=== PATIENT | male | born 1955 | race Caucasian/White ===

== ENCOUNTER → 2024-06-20 | Outpatient (CLI) | payer OTHER, SELFPAY ==
[2024-06-20 08:35] LABS: Basophils % (Auto) 1 % (0-2.5); Eosinophils # (Auto) 0.2 Thou/mm3 (0.0-0.5); Eosinophils % (Auto) 2 % (0-10); Hematocrit 38.1 % (41.0-53.0); Hemoglobin 12.3 g/dL (13.5-16.0); Immature Granulocytes % (Auto) 0 % (0-0); Immature Granulocytes Auto 0.02 Thou/mm3 (0.00-0.00); Lymphocytes # (Auto) 1.8 Thou/mm3 (1.0-4.8); Lymphocytes % (Auto) 26 % (10-50); Mean Corpuscular HGB Conc 32.3 g/dl (31.0-37.0); Mean Corpuscular Hemoglobin 30.9 pg (25.0-35.0); Mean Corpuscular Volume 96 fL (80-100); Monocytes # (Auto) 0.6 Thou/mm3 (0.0-0.8); Monocytes % (Auto) 9 % (0-12); Neutrophils # (Auto) 4.4 Thou/mm3 (1.8-7.7); Neutrophils % (Auto) 62 % (37-80); Nucleated Red Blood Cell % 0 /100 WBC (0); Platelet Count 194 Thou/mm3 (140-440); RDW Standard Deviation 49.8 fL (35.1-43.9); Red Blood Count 3.98 Miln/mm3 (4.50-5.90)
== END | disposition home or self-care (01) ==
PROVIDERS: PCP Family Medicine; Referring Provider Specialist; Visit Provider Specialist
DX: I74.9 Embolism and thrombosis of unspecified artery (principal)
CPT/HCPCS: 36415; 85025

== ENCOUNTER → 2024-07-19 | Outpatient (CLI) | payer OTHER, SELFPAY ==
[2024-07-19 08:33] LABS: Basophils # (Auto) 0.1 Thou/mm3 (0.0-0.2); Basophils % (Auto) 1 % (0-2.5); Eosinophils # (Auto) 0.1 Thou/mm3 (0.0-0.5); Eosinophils % (Auto) 2 % (0-10); Hematocrit 38.3 % (41.0-53.0); Hemoglobin 12.6 g/dL (13.5-16.0); Immature Granulocytes % (Auto) 0 % (0-0); Immature Granulocytes Auto 0.02 Thou/mm3 (0.00-0.00); Lymphocytes # (Auto) 1.6 Thou/mm3 (1.0-4.8); Lymphocytes % (Auto) 27 % (10-50); Mean Corpuscular HGB Conc 32.9 g/dl (31.0-37.0); Mean Corpuscular Hemoglobin 31.5 pg (25.0-35.0); Mean Corpuscular Volume 96 fL (80-100); Monocytes # (Auto) 0.6 Thou/mm3 (0.0-0.8); Monocytes % (Auto) 9 % (0-12); Neutrophils # (Auto) 3.6 Thou/mm3 (1.8-7.7); Neutrophils % (Auto) 60 % (37-80); Nucleated Red Blood Cell % 0 /100 WBC (0); Platelet Count 207 Thou/mm3 (140-440); RDW Standard Deviation 49.6 fL (35.1-43.9)
== END | disposition home or self-care (01) ==
PROVIDERS: PCP Family Medicine; Referring Provider Specialist; Visit Provider Specialist
DX: I74.9 Embolism and thrombosis of unspecified artery (principal); Z51.11 Encounter for antineoplastic chemotherapy
CPT/HCPCS: 36415; 85025

== ENCOUNTER → 2024-09-11 | Outpatient (CLI) | payer OTHER, SELFPAY ==
--- NOTE | 2024-09-11 | XR_ITS ---
Examination: Ultrasound urinary bladder Technique: Grayscale sonographic images urinary bladder Exam date and time: September 11, 2024 12:18 PM Indications: Pelvic pain beginning several months ago Findings: No bladder mass or bladder calculi Bladder prevoid volume 164 cc Urinary bladder wall 6 mm Prostate volume 13 cc no prostate nodules Impression: Mild thickening of the urinary bladder wall, consider cystitis
== END | disposition home or self-care (01) ==
LOC: CDIM 12:05
PROVIDERS: PCP Family Medicine; Referring Provider Physician Assistant; Visit Provider Physician Assistant
DX: N32.89 Other specified disorders of bladder (principal)
CPT/HCPCS: 76857

== ENCOUNTER → 2024-09-11 | Outpatient (CLI) | payer OTHER, SELFPAY ==
[2024-09-11 11:29] LABS: Basophils # (Auto) 0.1 Thou/mm3 (0.0-0.2); Basophils % (Auto) 1 % (0-2.5); Eosinophils # (Auto) 0.1 Thou/mm3 (0.0-0.5); Eosinophils % (Auto) 2 % (0-10); Hematocrit 40.1 % (41.0-53.0); Immature Granulocytes % (Auto) 0 % (0-0); Immature Granulocytes Auto 0.02 Thou/mm3 (0.00-0.00); Lymphocytes # (Auto) 1.9 Thou/mm3 (1.0-4.8); Lymphocytes % (Auto) 26 % (10-50); Mean Corpuscular HGB Conc 32.4 g/dl (31.0-37.0); Mean Corpuscular Hemoglobin 30.6 pg (25.0-35.0); Mean Corpuscular Volume 94 fL (80-100); Monocytes # (Auto) 0.6 Thou/mm3 (0.0-0.8); Monocytes % (Auto) 8 % (0-12); Neutrophils # (Auto) 4.7 Thou/mm3 (1.8-7.7); Neutrophils % (Auto) 64 % (37-80); Nucleated Red Blood Cell % 0 /100 WBC (0); Platelet Count 189 Thou/mm3 (140-440); RDW Standard Deviation 48.3 fL (35.1-43.9); Red Blood Count 4.25 Miln/mm3 (4.50-5.90); White Blood Count 7.4 Thou/mm3 (3.8-10.6)
[2024-09-11 13:24] LABS: Glucose Estimated Average 123 mg/dL (80-131); Hemoglobin A1C 5.9 % Hgb (4.8-6.0)
[2024-09-11 13:32] LABS: Prostate Specific Antigen 0.43 ng/mL (0-4.00)
[2024-09-11 13:47] LABS: Alanine Aminotransferase 23 U/L (10-49); Albumin, Serum 4.2 gm/dL (3.4-4.8); Albumin/Globulin Ratio 2.1 (1.2-2.2); Anion Gap 9 (7-16); Aspartate Amino Transferase 12 U/L (0-34); BUN/Creatinine Ratio 18 Ratio (12-20); Bilirubin,Total 0.6 mg/dL (0.3-1.2); Blood Urea Nitrogen 23 mg/dL (9-23); Calcium 9.2 mg/dL (8.3-10.6); Calcium (Corrected) 9.2 mg/dL (8.5-10.1); Carbon Dioxide 28.2 mMol/L (20.0-31.0); Cardiac Risk Estimate 3.2 RATIO (4.0-6.7); Chloride 105 mMol/L (98-107); Cholesterol 120 mg/dL (132-200); Creatinine (Component) 1.3 mg/dL (0.6-1.3); Glucose 91 mg/dL (74-106); HDL Cholesterol 38 mg/dL (40-60); LDL Cholesterol,Calculated 61 mg/dL (0-130); Osmolality,Calculated 286 (275-295); Sodium 142 mMol/L (136-145); Total Protein 6.2 gm/dL (5.7-8.2); Triglycerides 104 mg/dL (30-150); eGFR 59 See Note
[2024-09-11 14:32] LABS: Alkaline Phosphatase 59 U/L (46-116); Thyroid Stimulating Hormone 1.33 uIU/mL (0.55-4.78)
== END | disposition home or self-care (01) ==
LOC: COPL 10:41
PROVIDERS: PCP Physician Assistant; Referring Provider Physician Assistant; Visit Provider Physician Assistant
DX: N41.1 Chronic prostatitis (principal)
CPT/HCPCS: 36415; 80053; 80061; 81001; 83036; 84153; 84443; 85025

== ENCOUNTER → 2024-10-18 | Outpatient (CLI) | payer OTHER, SELFPAY ==
[2024-10-18 08:37] LABS: Basophils % (Auto) 1 % (0-2.5); Eosinophils # (Auto) 0.3 Thou/mm3 (0.0-0.5); Eosinophils % (Auto) 4 % (0-10); Hematocrit 37.7 % (41.0-53.0); Hemoglobin 12.5 g/dL (13.5-16.0); Immature Granulocytes % (Auto) 0 % (0-0); Immature Granulocytes Auto 0.02 Thou/mm3 (0.00-0.00); Lymphocytes # (Auto) 1.7 Thou/mm3 (1.0-4.8); Lymphocytes % (Auto) 19 % (10-50); Mean Corpuscular HGB Conc 33.2 g/dl (31.0-37.0); Mean Corpuscular Hemoglobin 30.8 pg (25.0-35.0); Mean Corpuscular Volume 93 fL (80-100); Monocytes # (Auto) 1.2 Thou/mm3 (0.0-0.8); Monocytes % (Auto) 14 % (0-12); Neutrophils # (Auto) 5.5 Thou/mm3 (1.8-7.7); Neutrophils % (Auto) 63 % (37-80); Nucleated Red Blood Cell % 0 /100 WBC (0); Platelet Count 201 Thou/mm3 (140-440); RDW Standard Deviation 48.1 fL (35.1-43.9); Red Blood Count 4.06 Miln/mm3 (4.50-5.90); White Blood Count 8.8 Thou/mm3 (3.8-10.6)
== END | disposition home or self-care (01) ==
LOC: COPL 06:50
PROVIDERS: PCP Family Medicine; Referring Provider Specialist; Visit Provider Specialist
DX: Z51.11 Encounter for antineoplastic chemotherapy (principal); I74.9 Embolism and thrombosis of unspecified artery
CPT/HCPCS: 36415; 85025

== ENCOUNTER → 2025-01-17 | Outpatient (BNVA) | payer OTHER, SELFPAY | END | disposition home or self-care (01) | PROVIDERS: PCP Family Medicine; Referring Provider Family Medicine; Visit Provider Urology | DX: N40.0 Benign prostatic hyperplasia without lower urinary tract symptoms (principal); E11.9 Type 2 diabetes mellitus without complications; I10 Essential (primary) hypertension; E66.01 Morbid (severe) obesity due to excess calories; Z68.39 Body mass index [BMI] 39.0-39.9, adult; F41.9 Anxiety disorder, unspecified; E78.00 Pure hypercholesterolemia, unspecified; Z86.73 Personal history of transient ischemic attack (TIA), and cerebral infarction without residual deficits | CPT/HCPCS: 81003; 99212; G0463 ==

== ENCOUNTER → 2025-01-17 | Outpatient (CLI) | payer OTHER, SELFPAY ==
[2025-01-17 08:38] LABS: Collection Type, Urine Clean Catch
[2025-01-17 09:15] LABS: Basophils # (Auto) 0.0 Thou/mm3 (0.0-0.2); Basophils % (Auto) 1 % (0-2.5); Eosinophils # (Auto) 0.1 Thou/mm3 (0.0-0.5); Eosinophils % (Auto) 1 % (0-10); Hematocrit 40.0 % (41.0-53.0); Hemoglobin 13.1 g/dL (13.5-16.0); Immature Granulocytes Auto 0.02 Thou/mm3 (0.00-0.00); Lymphocytes # (Auto) 1.8 Thou/mm3 (1.0-4.8); Lymphocytes % (Auto) 24 % (10-50); Mean Corpuscular HGB Conc 32.8 g/dl (31.0-37.0); Mean Corpuscular Hemoglobin 30.9 pg (25.0-35.0); Mean Corpuscular Volume 94 fL (80-100); Monocytes # (Auto) 0.6 Thou/mm3 (0.0-0.8); Monocytes % (Auto) 9 % (0-12); Neutrophils # (Auto) 4.8 Thou/mm3 (1.8-7.7); Neutrophils % (Auto) 66 % (37-80); Nucleated Red Blood Cell # 0.00 Thou/mm3 (0.00-0.00); Nucleated Red Blood Cell % 0 /100 WBC (0); Platelet Count 201 Thou/mm3 (140-440); RDW Standard Deviation 50.1 fL (35.1-43.9); Red Blood Count 4.24 Miln/mm3 (4.50-5.90); White Blood Count 7.3 Thou/mm3 (3.8-10.6)
[2025-01-17 09:17] LABS: Glucose Estimated Average 117 mg/dL (80-131); Hemoglobin A1C 5.7 % Hgb (4.8-6.0)
[2025-01-17 09:23] LABS: Prostate Specific Antigen 0.45 ng/mL (0-4.00)
[2025-01-17 09:26] LABS: Alanine Aminotransferase 21 U/L (10-49); Albumin, Serum 4.4 gm/dL (3.4-4.8); Albumin/Globulin Ratio 2.1 (1.2-2.2); Alkaline Phosphatase 57 U/L (46-116); Anion Gap 5 (7-16); Aspartate Amino Transferase 22 U/L (0-34); BUN/Creatinine Ratio 18 Ratio (12-20); Bilirubin,Total 0.4 mg/dL (0.3-1.2); Blood Urea Nitrogen 29 mg/dL (9-23); Calcium 9.1 mg/dL (8.3-10.6); Calcium (Corrected) 9.1 mg/dL (8.5-10.1); Carbon Dioxide 27.7 mMol/L (20.0-31.0); Cardiac Risk Estimate 3.7 RATIO (4.0-6.7); Chloride 107 mMol/L (98-107); Cholesterol 142 mg/dL (132-200); Creatinine (Component) 1.6 mg/dL (0.6-1.3); Globulin 2.1 gm/dL (2.3-3.5); Glucose 116 mg/dL (74-106); HDL Cholesterol 38 mg/dL (40-60); LDL Cholesterol,Calculated 73 mg/dL (0-130); Osmolality,Calculated 286 (275-295); Potassium 5.5 mMol/L (3.4-5.1); Sodium 140 mMol/L (136-145); Thyroid Stimulating Hormone 2.08 uIU/mL (0.55-4.78); Total Protein 6.5 gm/dL (5.7-8.2); Triglycerides 155 mg/dL (30-150); eGFR 46 See Note
[2025-01-17 09:55] LABS: Bilirubin,Urine Negative (Negative); Blood,Urine Negative (Negative); Clarity,Urine Clear (Clear/Hazy); Color,Urine Lt-Yellow (Lt Yel-Yel); Culture Indicated,Urine Not Indicated; Glucose, Urine Negative (Negative); Ketones,Urine Negative (Negative); Leukocyte Esterase,Urine Negative (Negative); Nitrite,Urine Negative (Negative); PH,Urine 5.5 (5.0-7.0); Protein,Urine Negative (Neg - Trace); RBC,Urine 2 /hpf (0-3); Specific Gravity,Urine 1.020 (1.001-1.035); Squamous Epithelial Cell,Urine < 1 /hpf (0-5); Urobilinogen,Urine Negative mg/dL (0.0-1.0); WBC,Urine < 1 /hpf (0-5)
== END | disposition home or self-care (01) ==
LOC: COPL 07:12
PROVIDERS: PCP Family Medicine; Referring Provider Physician Assistant; Visit Provider Specialist
DX: I74.9 Embolism and thrombosis of unspecified artery (principal); Z51.11 Encounter for antineoplastic chemotherapy; E11.21 Type 2 diabetes mellitus with diabetic nephropathy
CPT/HCPCS: 36415; 80053; 80061; 81001; 83036; 84153; 84443; 85025

== ENCOUNTER → 2025-02-21 | Outpatient (BNVA) | payer OTHER, SELFPAY | END | disposition home or self-care (01) | PROVIDERS: PCP Family Medicine; Referring Provider Family Medicine; Visit Provider Urology | DX: N40.1 Benign prostatic hyperplasia with lower urinary tract symptoms (principal); R39.12 Poor urinary stream; I10 Essential (primary) hypertension; E78.00 Pure hypercholesterolemia, unspecified; E11.9 Type 2 diabetes mellitus without complications | CPT/HCPCS: 51741; 51798 ==

== ENCOUNTER → 2025-06-10 | Outpatient (CLI) | payer OTHER, SELFPAY ==
[2025-06-10 08:04] LABS: Collection Type, Urine Clean Catch
[2025-06-10 08:36] LABS: Basophils # (Auto) 0.0 Thou/mm3 (0.0-0.2); Basophils % (Auto) 1 % (0-2.5); Eosinophils # (Auto) 0.2 Thou/mm3 (0.0-0.5); Eosinophils % (Auto) 3 % (0-10); Hematocrit 38.0 % (41.0-53.0); Hemoglobin 12.1 g/dL (13.5-16.0); Immature Granulocytes Auto 0.03 Thou/mm3 (0.00-0.00); Lymphocytes # (Auto) 1.8 Thou/mm3 (1.0-4.8); Lymphocytes % (Auto) 30 % (10-50); Mean Corpuscular HGB Conc 31.8 g/dl (31.0-37.0); Mean Corpuscular Hemoglobin 30.6 pg (25.0-35.0); Mean Corpuscular Volume 96 fL (80-100); Monocytes # (Auto) 0.5 Thou/mm3 (0.0-0.8); Monocytes % (Auto) 9 % (0-12); Neutrophils # (Auto) 3.4 Thou/mm3 (1.8-7.7); Neutrophils % (Auto) 57 % (37-80); Nucleated Red Blood Cell # 0.00 Thou/mm3 (0.00-0.00); Nucleated Red Blood Cell % 0 /100 WBC (0); Platelet Count 188 Thou/mm3 (140-440); RDW Standard Deviation 50.6 fL (35.1-43.9); Red Blood Count 3.96 Miln/mm3 (4.50-5.90); White Blood Count 5.9 Thou/mm3 (3.8-10.6)
[2025-06-10 08:43] LABS: Glucose Estimated Average 128 mg/dL (80-131); Hemoglobin A1C 6.1 % Hgb (4.8-6.0)
[2025-06-10 08:56] LABS: Creatinine MALB Rnd Ur 164 mg/dL (30-125); Microalbumin, Random Urine < 3 mg/L (0-300)
[2025-06-10 08:57] LABS: Alanine Aminotransferase 19 U/L (10-49); Albumin, Serum 4.6 gm/dL (3.4-4.8); Albumin/Globulin Ratio 2.3 (1.2-2.2); Alkaline Phosphatase 56 U/L (46-116); Anion Gap 9 (7-16); Aspartate Amino Transferase 23 U/L (0-34); BUN/Creatinine Ratio 15 Ratio (12-20); Bilirubin,Total 0.5 mg/dL (0.3-1.2); Blood Urea Nitrogen 21 mg/dL (9-23); Calcium 9.2 mg/dL (8.3-10.6); Calcium (Corrected) 9.2 mg/dL (8.5-10.1); Carbon Dioxide 28.7 mMol/L (20.0-31.0); Cardiac Risk Estimate 3.2 RATIO (4.0-6.7); Chloride 105 mMol/L (98-107); Cholesterol 126 mg/dL (132-200); Creatinine (Component) 1.4 mg/dL (0.6-1.3); Globulin 2.0 gm/dL (2.3-3.5); Glucose 112 mg/dL (74-106); HDL Cholesterol 40 mg/dL (40-60); LDL Cholesterol,Calculated 68 mg/dL (0-130); Osmolality,Calculated 288 (275-295); Potassium 4.8 mMol/L (3.4-5.1); Sodium 143 mMol/L (136-145); Thyroid Stimulating Hormone 1.55 uIU/mL (0.55-4.78); Total Protein 6.6 gm/dL (5.7-8.2); Triglycerides 91 mg/dL (30-150); eGFR 54 See Note
[2025-06-10 09:01] LABS: Prostate Specific Antigen 0.70 ng/mL (0-4.00)
[2025-06-10 09:20] LABS: Bilirubin,Urine Negative (Negative); Blood,Urine Negative (Negative); Clarity,Urine Clear (Clear/Hazy); Color,Urine Lt-Yellow (Lt Yel-Yel); Culture Indicated,Urine Not Indicated; Glucose, Urine Negative (Negative); Ketones,Urine Negative (Negative); Leukocyte Esterase,Urine Negative (Negative); Nitrite,Urine Negative (Negative); PH,Urine 5.5 (5.0-7.0); Protein,Urine Negative (Neg - Trace); RBC,Urine 1 /hpf (0-3); Specific Gravity,Urine 1.023 (1.001-1.035); Squamous Epithelial Cell,Urine < 1 /hpf (0-5); Urobilinogen,Urine Negative mg/dL (0.0-1.0); WBC,Urine < 1 /hpf (0-5)
[2025-06-12 06:24] LABS: Fecal Globin Result NOT DETECTED (NOT DETECTED)
== END | disposition home or self-care (01) ==
LOC: COPL 07:00
PROVIDERS: PCP Family Medicine; Referring Provider Physician Assistant; Visit Provider Physician Assistant
DX: E78.00 Pure hypercholesterolemia, unspecified (principal); E11.21 Type 2 diabetes mellitus with diabetic nephropathy; I12.9 Hypertensive chronic kidney disease with stage 1 through stage 4 chronic kidney disease, or unspecified chronic kidney disease; N18.9 Chronic kidney disease, unspecified
CPT/HCPCS: 36415; 80053; 80061; 81001; 82043; 82274; 82570; 83036; 84153; 84443; 85025; G0328

== ENCOUNTER 2025-07-04 14:19 | Emergency (ER) | payer OTHER, SELFPAY ==
--- NOTE | 2025-07-04 14:30 | EKG_ITS ---
[facility] Test Date: 2025-07-04 Pat Name: RICHARD HERR Department: Room: - Gender: Male [employer] Supervisor: : [id number] Requested By: Pedro Villa (QUINCY) Order Number: [id number] Reading MD: Pedro Villa (ADMINISTRATIVE REPRESENTATIVE) Measurements Intervals [place] Rate: 69 P: 12 IN: 217 QRS: -2 QRSD: 90 T: 49 QT: 354 QTc: 381 Interpretive Statements SINUS RHYTHM WITH FIRST DEGREE AV BLOCK Compared to ECG 05/24/2024 22:09:03 Myocardial infarct finding no longer present /store/S0/[id number]/ecg/[id number].pdf
[2025-07-04 14:46] VITALS: BMI 36.5
[2025-07-04 14:48] VITALS: BP 138/66; PULSE 77; RESP 18; TEMP 37.1; O2SAT 96
--- NOTE | 2025-07-04 14:54 | XR_ITS ---
Examination: CT pelvis without intravenous contrast. 2-D sagittal and coronal reconstructions. Date and time of exam: July 04, 2025, 1620 hours INDICATIONS: Pelvic pain and weakness 2 weeks CTDI: vol (mGy) : 14.5 DLP: (mGycm) : 501 Technique: Multiple 3 mm axial sections of the pelvis have been obtained with the 64 slice high resolution scanner. 2-D sagittal and coronal reconstructions. Low dose protocols were performed. One or more of the following dose reduction techniques were used; automated exposure control, adjustment of the mA and/or KV according to patient size, use of iterative reconstruction technique. Findings: Negative for bowel obstruction or diverticulitis Normal seminal vesicles Mild prostatomegaly No bladder mass or bladder calculi Please see the CT lumbar spine report Prominent anterior osteophytes L5-S1 Hips bones of the pelvis sacral segments intact IMPRESSION: No acute process in the pelvis Hips bones of the pelvis intact Mild to moderate narrowing hip joints
--- NOTE | 2025-07-04 14:54 | XR_ITS ---
Examination: CT lumbar spine, without contrast. 2-D sagittal reconstructions. 2-D coronal reconstructions. 3-D reconstructions. Date and time of exam: July 04, 2025, 1620 hours INDICATIONS: Lower back pain 2 weeks CTDI: vol (mGy): 39.3 DLP: (mGycm): 1126 Technique: Multiple 1.25 mm axial sections of the lumbar spine . 2-D sagittal and coronal reconstructions have been obtained. 3-D reconstructions have been obtained. Low dose protocols were performed. One or more of the following dose reduction techniques were used; automated exposure control, adjustment of the mA and/or KV according to patient size, use of iterative reconstruction technique. Findings: Severe osteopenia Acute fractures L3 vertebral body, depression superior endplate, reduction in height centrally 35% Pedicles laminae at the site intact L4-L5 moderate to severe overall spinal stenosis, 6 mm central lumbar disc bulge, facet arthropathy and thickening of the ligamentum flavum circumferentially narrowing the thecal sac IMPRESSION: Acute fractures L3 vertebral body as above
--- NOTE | 2025-07-04 14:54 | XR_ITS ---
Examination: Venous duplex lower extremity sonogram, bilateral. Date and time of exam: July 04, 2025, 1524 hours INDICATIONS: Bilateral leg coldness numbness and pain beginning 2 weeks ago, history positive DVT left leg August 30, 2023, patient anticoagulated Technique: Multiple sonographic images of the deep venous system have been obtained. B-mode/2-D grayscale imaging of vascular structures and Doppler spectral analysis (waveforms) and color performed Both legs are examined. Findings: Positive for chronic DVT left mid and distal superficial femoral vein Remaining deep venous system left leg unremarkable Normal right leg deep venous system IMPRESSION: Positive for chronic DVT left mid and distal superficial femoral vein
--- NOTE | 2025-07-04 14:55 | PD.EDRME ---
Rapid Medical Screening Exam RME Arrival date/time: 07/04/25 14:19 69-year-old male presents to the Emergency Department of complaint of generalized lower extremity weakness and cold sensation Chief Complaint: Weakness Vital signs: Vital Signs Temperature 98.8 F 07/04/25 14:48 Pulse Rate 77 07/04/25 14:48 Respiratory Rate 18 07/04/25 14:48 Blood Pressure 138/66 H 07/04/25 14:48 Pulse Oximetry (%) 96 07/04/25 14:48 Oxygen Delivery Method Room Air 07/04/25 14:48 Vital signs reviewed by provider: Yes Exam: On exam patient reports he is in pain but does not appear ill or toxic Clinical Impression: Lab work and imaging obtained
[2025-07-04 15:22] LABS: Basophils # (Auto) 0.0 Thou/mm3 (0.0-0.2); Basophils % (Auto) 0 % (0-2.5); Eosinophils # (Auto) 0.1 Thou/mm3 (0.0-0.5); Eosinophils % (Auto) 1 % (0-10); Hematocrit 38.1 % (41.0-53.0); Hemoglobin 12.6 g/dL (13.5-16.0); Immature Granulocytes Auto 0.01 Thou/mm3 (0.00-0.00); Lymphocytes # (Auto) 1.5 Thou/mm3 (1.0-4.8); Lymphocytes % (Auto) 18 % (10-50); Mean Corpuscular HGB Conc 33.1 g/dl (31.0-37.0); Mean Corpuscular Hemoglobin 30.7 pg (25.0-35.0); Mean Corpuscular Volume 93 fL (80-100); Monocytes # (Auto) 0.7 Thou/mm3 (0.0-0.8); Monocytes % (Auto) 8 % (0-12); Neutrophils # (Auto) 6.0 Thou/mm3 (1.8-7.7); Neutrophils % (Auto) 72 % (37-80); Nucleated Red Blood Cell # 0.00 Thou/mm3 (0.00-0.00); Nucleated Red Blood Cell % 0 /100 WBC (0); Platelet Count 206 Thou/mm3 (140-440); RDW Standard Deviation 49.6 fL (35.1-43.9); Red Blood Count 4.10 Miln/mm3 (4.50-5.90); White Blood Count 8.3 Thou/mm3 (3.8-10.6)
[2025-07-04 15:33] LABS: INR 1.1 (0.9-1.3); Partial Thromboplastin Time 23.1 Seconds (22.0-36.0); Prothrombin Time 11.3 Seconds (9.0-12.2)
[2025-07-04 15:36] LABS: B-Type Natriuretic Peptide 56 pg/mL (0-100)
[2025-07-04 15:37] LABS: Alanine Aminotransferase 18 U/L (10-49); Albumin, Serum 4.9 gm/dL (3.4-4.8); Albumin/Globulin Ratio 2.2 (1.2-2.2); Alkaline Phosphatase 130 U/L (46-116); Anion Gap 10 (7-16); Aspartate Amino Transferase 22 U/L (0-34); BUN/Creatinine Ratio 21 Ratio (12-20); Bilirubin,Total 0.4 mg/dL (0.3-1.2); Blood Urea Nitrogen 29 mg/dL (9-23); Calcium 9.5 mg/dL (8.3-10.6); Calcium (Corrected) 9.5 mg/dL (8.5-10.1); Carbon Dioxide 25.4 mMol/L (20.0-31.0); Chloride 106 mMol/L (98-107); Creatinine (Component) 1.4 mg/dL (0.6-1.3); Estimated Creatinine Clearance 59.8 mL/min (>60); Globulin 2.2 gm/dL (2.3-3.5); Glucose 92 mg/dL (74-106); Magnesium 1.0 mg/dL (1.6-2.6); Osmolality,Calculated 287 (275-295); Potassium 5.5 mMol/L (3.4-5.1); Sodium 141 mMol/L (136-145); Total Protein 7.1 gm/dL (5.7-8.2); Troponin I < 0.020 ng/mL (0.0-0.045); eGFR 54 See Note
[2025-07-04 20:42] LABS: Collection Type, Urine Clean Catch; Squamous Epithelial Cell,Urine 0 /hpf (0-5)
[2025-07-04 20:50] LABS: Bilirubin,Urine Negative (Negative); Blood,Urine Negative (Negative); Clarity,Urine Clear (Clear/Hazy); Color,Urine Lt-Yellow (Lt Yel-Yel); Culture Indicated,Urine Not Indicated; Glucose, Urine Negative (Negative); Ketones,Urine Trace (Negative); Leukocyte Esterase,Urine Negative (Negative); Nitrite,Urine Negative (Negative); PH,Urine 5.5 (5.0-7.0); Protein,Urine Negative (Neg - Trace); RBC,Urine 2 /hpf (0-3); Specific Gravity,Urine 1.022 (1.001-1.035); Urobilinogen,Urine Negative mg/dL (0.0-1.0); WBC,Urine < 1 /hpf (0-5)
--- NOTE | 2025-07-04 21:26 | PD.EDWEAK ---
ED Weakness RME/HPI General Chief complaint: Weakness Stated complaint: COLD LEGS, WEAK Time Seen by Provider: 07/04/25 18:39 Arrival date/time: 07/04/25 14:19 RME / HPI RME / HPI Narrative: 07/04/25 14:19 69-year-old male presents to the Emergency Department of complaint of generalized lower extremity weakness and cold sensation DR. AUSTIN MAIN ED EVALUATION: 69 y/o male with Hx of Factor V, CVA, Seizures, HLD, HTN, Tremor, and Type 2 DM presents to ED c/o hip pain, BLE weakness with associated cold sensation within the extremities s/p fall landing on his buttocks x 1 week ago. Reports bumping his head, but denies LOC and has full recollection of events. Patient was not medically evaluated after fall. States symptoms were improving, but are now worsening. Patient is on Eliquis for Chronic DVT. Denies urinary or fecal incontinence. Denies fever chills, nausea, vomiting, bloody or tarry stool. Also denies any IV drug abuse or alcohol use. Exam: On exam patient reports he is in pain but does not appear ill or toxic Impression: Lab work and imaging obtained Related Data Home Medications ?Medication ?Instructions ?Recorded ?Confirmed gabapentin 300 mg capsule 300 mg PO BID #0 caps 12/10/15 02/21/25 lisinopril 40 mg tablet 10 mg PO QDAY #0 tabs 12/10/15 02/21/25 metformin 1,000 mg tablet 1,000 mg PO BIDAC #0 tabs 12/10/15 02/21/25 (Glucophage) pioglitazone 30 mg tablet (Actos) 30 mg PO QDAY #0 tabs 12/10/15 02/21/25 lacosamide 100 mg tablet (Vimpat) 200 mg PO BID #0 tabs 12/08/16 02/21/25 atorvastatin 40 mg tablet 40 mg PO HS 08/15/18 02/21/25 lorazepam 1 mg tablet 1 mg PO Q4H PRN Seizure Activity 08/15/18 02/21/25 apixaban 5 mg tablet (Eliquis) 5 mg PO BID 01/17/25 02/21/25 Previous Rx's ?Medication ?Instructions ?Recorded levetiracetam 1,000 mg tablet 1,000 mg PO BID #60 tabs 04/05/19 comp.stocking,thigh,long,large #2 ea 09/01/23 Allergies Allergy/AdvReac Type Severity Reaction Status Date / Time Iodinated Contrast Media Allergy Mild Rash Verified 07/04/25 14:23 Review of Systems Review of Systems Systems Reviewed: All systems reviewed, normal except as documented Past Medical History Past Medical History NEUROLOGIC: Positive Neurological Disorders, Cerebrovascular Accident and Seizures CARDIAC: Positive Cardiac Disorders, Hypercholesterolemia and Hypertension ENDOCRINE: Positive Endocrine Disorders and Diabetes Mellitus Type 2 HEMATOLOGIC: Positive Blood Disorders (factor 5) and Clotting Problems OTHER HISTORY: Positive Falls, Chicken Pox, Measles and Mumps Family History FAMILY HISTORY: Positive Family Cardiac Disorders (Sister heart disease, brother heart disease) ED Exam Narrative Physical exam: GEN. APPEARANCE: The patient is alert awake oriented X-3 in no distress, lying down comfortably, does not look ill/toxic. Patient has good eye contact. Patient is cooperative. VITALS: All vitals were reviewed and the pulse ox is 96% on room air which is normal according to my interpretation. HEENT: Normocephalic, atraumatic. Pupils are equal and reactive. Oral mucosa is moist. Patent Nares NECK: Supple, nontender, no thyromegaly, no meningismus, no JVD CHEST: Symmetrical, atraumatic, and with equal expansion , Nontender on palpation no deformity and no crepitus. CARDIOVASCULAR: Heart regular rhythm no murmur or gallop rub or extra beats. LUNGS: Clear to auscultation bilaterally with symmetrical chest rise. No laboring tachypnea or wheezing. No intercostal subcostal retraction. No rales and no rhonchi. ABDOMEN: Soft, flat, nontender to palpation, no guarding or rebound tenderness. There are no abnormal masses palpated. Active and normal bowel sounds. EXTREMITIES: Nontender. No edema. No cyanosis. Patient is able to move all 4 extremities well, with full ROM and good CSM. Numbness between the BLE. SKIN: Warm and dry, no jaundice or rashes noted. MUSCULOSKELETAL: No lumbar or midline bony tenderness. There is no CVA tenderness. No paraspinal muscle spasm or tenderness. NEURO: Patient is PITTS x 4, Cranial nerves II through XII grossly intact. There is no focal neurologic deficits noted. 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 PSYCHIATRIC: Patient is in normal mood and affect. Course Course Course Narrative: 0454: Patient transported to [facility] by EMS. Quality Measures none Orders Category Date Time Status EKG (ED ONLY) *Do not use* NOW Care 07/04/25 14:30 Completed MRI Screening NOW Care 07/04/25 22:18 Active Miscellaneous Nursing Order NOW Care 07/04/25 21:33 Active Miscellaneous Nursing Order NOW Care 07/04/25 22:[address] head/brain wo con Stat Exams 07/04/25 23:[address] lumbar spine wo con Stat Exams 07/04/25 14:[address] pelvis wo con Stat Exams 07/04/25 14:54 Completed EKG (ED Only) Stat Exams 07/04/25 14:30 Draft MR lumbar spine wo con Stat Exams 07/04/25 Ordered US venous doppler LE BI Stat Exams 07/04/25 14:54 Completed B-Type Natriuretic Peptide Stat Lab 07/04/25 15:09 Completed CBC Stat Lab 07/04/25 15:09 Completed Comprehensive Metabolic Panel Stat Lab 07/04/25 15:09 Completed Magnesium Stat Lab 07/04/25 15:09 Completed Partial Thromboplastin Time Stat Lab 07/04/25 15:09 Completed Prothrombin Time with INR Stat Lab 07/04/25 15:09 Completed Troponin I Stat Lab 07/04/25 15:09 Completed Urinalysis, C/S if Indicated Stat Lab 07/04/25 20:35 Completed ALBUTEROL RT 0.5ml [Proventil Rt 0.5ml] Med 07/04/25 22:14 Discontinued 2.5 mg INH X1 ONE Calcium Gluconate 10% Inj Med 07/04/25 22:14 Discontinued 1 gm IV X1 ONE Dextrose 50% Syr [D50w Syringe Abboject] Med 07/04/25 23:11 Discontinued 50 ml IVP X1 STA Magnesium Oxide [Mag-Ox 400] Med 07/04/25 21:28 Discontinued 400 mg PO X1 ONE Sod Polystyrene Sulfon Susp [Kayexalate Susp] Med 07/04/25 22:14 Discontinued 30 gm PO X1 ONE Sodium Chloride Rt Karlee 0.9% [NS Rt Karlee 0.9%] Med 07/04/25 22:14 Active 3 ml INH PRN PRN dexAMETHasone INJ [Decadron Inj] 16 mg Med 07/04/25 22:31 Discontinued Sodium Chloride 0.9% [Ns] 100 ml IV X1 Vital Signs Vital signs: Vital Signs Temperature 98.8 F 07/04/25 14:48 Pulse Rate 77 07/04/25 14:48 Respiratory Rate 18 07/04/25 14:48 Blood Pressure 138/66 H 07/04/25 14:48 Pulse Oximetry (%) 96 07/04/25 14:48 Oxygen Delivery Method Room Air 07/04/25 14:48 Weakness MDM Narrative MDM Narrative:: Scribe Attestation: I, Lelo Brito, am scribing for and in the presence of Dr. Austin. Provider Notation: Although this document has been carefully reviewed, there may still be some phonetic and other typographical errors. These errors are purely grammatical due to imperfections in the software program and should not be construed in any way to compromise the substance of the patient's medical care during this visit. Patient is a 69-year-old male with medical history notable for diabetes, hypertension, osteopenia, seizure disorder, factor V Leiden deficiency, seizure disorder, prior stroke with residual resting tremor, that is in the Emergency Department with concerns for weakness of bilateral lower extremities after a fall a week ago. Vital signs and exam as listed. Prior provider evaluated patient. Ordered labs, CT lumbar spine, CT pelvis as well as bilateral lower extremity ultrasounds. Offered medication for symptom relief. On my assessment, patient is concerned that he has a cold feeling running down both of his legs that started after the fall a week ago. Feels like numbness focus mostly in between his legs like U . Denies any urinary nor bowel incontinence. Patient has intact rectal tone on my exam. Strong in all 4 extremities, has sensation in all 4 extremities. No midline tenderness palpation along the cervical thoracic nor lumbar spine. Concern for fracture dislocation soft tissue injury of the back and pelvis, concern for DVT, concern for cauda equina syndrome. Patient has intact pulses bilateral 2+ lower extremities DP, lower extremities are warm and well-perfused, no lower extremity edema, less likely arterial occlusion of the lower extremities. Labs with evidence of chronic anemia. Hemoglobin 12.6 at his baseline. Patient potassium is 5.5 per chart review patient has come to the emergency department with multiple episodes in the past of elevated potassium. Patient creatinine is 1.4, this is at patient's baseline. Will provide medications for management of patient's hyperkalemia. Patient with hypomagnesemia will replete in the emergency department. Urinalysis without evidence of infection. Bilateral lower extremity ultrasounds with evidence of chronic left mid distal superficial femoral thrombosis. CT pelvis unremarkable. Lumbar spine CT with severe osteopenia, acute fractures of the L3 vertebral body, depression of the superior endplate, reduction in height centrally 35%, pedicles lamina at the site intact. L4-L5 moderate to severe overall spinal stenosis. 6 mm central lumbar disc bulge. Facet arthropathy and thickening of the ligamentum flavum. Circumferential narrowing of the thecal sac. Given patient has numbness in between his legs, and subjective cold feeling concerned the patient may have cord impingement. I ordered MRI of the lumbar spine however we do not have MRI capabilities overnight. Initiated transfer for neurosurgery given my concerns for cauda equina syndrome. Initiated spinal precautions. 11:33p discussed case with [facility] will discuss with her neurosurgeon 11:47p discussed case with [facility] will discuss with her neurosurgeon... Discussed case with Dr. Flores at [facility]. States that if patient is able to void he does not have RITO. Recommends MRI and postvoid residual. I let him know that we do not have access to MRI overnight, and so I would perform a postvoid residual assessment and call him back if there is evidence of urinary retention Patient data External records reviewed:: [facility] previous records (Reviewed prior ED records from 05/24/24. Patient was seen for Fall.) Clinical information provided by:: patient Social determinants that could affect healthcare access:: none Patient has the following chronic illnesses:: Seizures, Hypercholesterolemia, Hypertension, Diabetes Mellitus Type 2 How is presenting disease/condition affected by chronic disease/condition?: exacerbated by Evaluation data The following diagnostics were reviewed and interpreted by me:: lab results, radiology exam(s) and EKG tracing(s) (EKG done at 14:58, 69 bpm, normal intervals, non-specific T-wave changes, not a cardiac alert. - Interpreted by Dr. Kylah Austin.) Lab and/or radiology exams considered but not ordered:: None Interpretation Summary: RADIOLOGY Venous Doppler Study US: Findings: Positive for chronic DVT left mid and distal superficial femoral vein Remaining deep venous system left leg unremarkable Normal right leg deep venous system IMPRESSION: Positive for chronic DVT left mid and distal superficial femoral vein Pelvis CT: Findings: Negative for bowel obstruction or diverticulitis Normal seminal vesicles Mild prostatomegaly No bladder mass or bladder calculi Please see the CT lumbar spine report Prominent anterior osteophytes L5-S1 Hips bones of the pelvis sacral segments intact IMPRESSION: No acute process in the pelvis Hips bones of the pelvis intact Mild to moderate narrowing hip joints Lumbar Spine CT: Findings: Severe osteopenia Acute fractures L3 vertebral body, depression superior endplate, reduction in height centrally 35% Pedicles laminae at the site intact L4-L5 moderate to severe overall spinal stenosis, 6 mm central lumbar disc bulge, facet arthropathy and thickening of the ligamentum flavum circumferentially narrowing the thecal sac IMPRESSION: Acute fractures L3 vertebral body as above Medications / Prescriptions Medications or Prescriptions considered but not ordered:: None Medication administrations:: Medication Administration History Sodium Chloride (Sodium Chloride Rt Karlee 0.9% 3 Ml Nebu) 3 ml INH PRN PRN PRN Reason: SOLN Stop: 08/03/25 22:13 Discontinued Medications Albuterol (Albuterol Rt 2.5 Mg/0.5 Ml Nebu) 2.5 mg INH X1 ONE Stop: 07/04/25 22:15 Last Admin: 07/04/25 22:33 Dose: 2.5 mg Documented By: [email or web address] Admin: 07/04/25 22:33 Dose: 2.5 mg Documented By: DOUG Calcium Gluconate (Calcium Gluconate 10% Inj 1 Gm/10 Ml Vial) 1 gm IV X1 ONE Stop: 07/04/25 22:15 Last Admin: 07/04/25 22:23 Dose: 1 gm Documented By: CHERYL Dextrose (Dextrose 50%-Water Inj 50 Ml Syringe) 50 ml IVP X1 STA Stop: 07/04/25 23:12 Last Admin: 07/04/25 23:20 Dose: Not Given Documented By: CHERYL Non-Admin Reason: Cancelled by Provider Dexamethasone Sodium Phosphate (16 mg/ Sodium Chloride) 101.6 mls @ 101.6 mls/hr IV X1 ONE Stop: 07/04/25 22:32 Last Infusion: 07/05/25 00:18 Dose: Infused Documented By: Admin: 07/04/25 23:18 Dose: 101.6 mls/hr Documented By: CHERYL Magnesium Oxide (Magnesium Oxide 400 Mg Tablet) 400 mg PO X1 ONE Stop: 07/04/25 21:29 Last Admin: 07/04/25 22:01 Dose: 400 mg Documented By: CHERYL Sodium Polystyrene Sulfonate (Sod Polystyrene Sulfon Susp 15 Gm/60 Ml Btl) 30 gm PO X1 ONE Stop: 07/04/25 22:15 Last Admin: 07/04/25 22:23 Dose: 30 gm Documented By: CHERYL See above if any. Consultations Consultation(s) initiated? (list below): Yes Consultation #1 (Physician, Specialty, Details): Discussed with [facility], for transfer. Reviewed the patient?s HPI, PMHx, lab and/or radiology results. Discussed treatment plan. Dr. Francois declines patient for transfer. Time: 23:32 Consultation #2 (Physician, Specialty, Details): Discussed with [facility], for transfer. Reviewed the patient?s HPI, PMHx, lab and/or radiology results. Discussed treatment plan. Will consult an admission to the neurosurgeon. Time: 23:45 Consultation #3 (Physician, Specialty, Details): Patient accepted to [facility] trauma department by Dr. Dockery. Time: 03:09 Diagnosis Weakness Differential Diagnosis: acute myocardial infarction, anemia, hypoglycemia, rhabdomyolysis, dehydration and other (CVA, TIA) Most likely diagnosis given after review of the tests above:: Cauda Equina Syndrome Admission Indicated Admission indicated?: not indicated Explain why admission is indicated or not indicated:: Pending transfer to [facility] for further evaluation and treatment. Admission Request Was there a request for admission?: No Disposition Plan Disposition Plan: Transfer Discharge Plan Plan Patient Disposition: [facility] Facility Pt Being Transferred to: [facility] Service Needed for Transfer: Neurosurgery Prescriptions/Referrals Prescriptions/Med Rec: No Action Eliquis 5 mg tablet 5 mg PO BID gabapentin 300 MG capsule 300 mg PO BID Qty: 0 lisinopril 40 MG tablet 10 mg PO QDAY Qty: 0 metformin [Glucophage] 1,000 MG tablet 1,000 mg PO BIDAC Qty: 0 pioglitazone [Actos] 30 MG tablet 30 mg PO QDAY Qty: 0 Patient Comments: FOR DIABETES lacosamide [Vimpat] 100 MG tablet 200 mg PO BID Qty: 0 levetiracetam 1,000 mg tablet 1,000 mg PO BID Qty: 60 1RF atorvastatin 40 mg Tablet 40 mg PO HS lorazepam 1 mg Tablet 1 mg PO Q4H PRN (Reason: Seizure Activity) (DME) comp.stocking,thigh,long,large Misc See Rx Instructions .Route Qty: 2 0RF Rx Instructions: As directed Referrals: Hawk Skelton MD [Primary Care Provider, Family Practice] - In 1 week Problem List Clinical Impression: Cauda equina syndrome Patient/Caregiver Discharge Instructions Print Language: Russian Stand Alone Forms: Lois Award Info., Patient Portal Info Letter
[2025-07-04 21:59] VITALS: BP 138/59; PULSE 63; RESP 18; O2SAT 97
[2025-07-04] MEDS: MAGNESIUM OXIDE 400 MG TABLET PO (22:01)
[2025-07-04] MEDS: SOD POLYSTYRENE SULFON SUSP 15 GM/60 ML BTL 30 GM PO (22:23)
[2025-07-04] MEDS: CALCIUM GLUCONATE 10% INJ 1 GM/10 ML VIAL IV (22:23)
[2025-07-04 22:33] VITALS: PULSE 73
[2025-07-04] MEDS: ALBUTEROL RT 2.5 MG/0.5 ML NEBU INH ×2 (22:33)
[2025-07-04 22:40] VITALS: PULSE 77; RESP 20; O2SAT 96
[2025-07-04 23:32] VITALS: BP 161/65; PULSE 72; RESP 18; TEMP 36.9; O2SAT 95
--- NOTE | 2025-07-04 23:32 | XR_ITS ---
Examination: CT brain head without contrast. 2-D sagittal coronal reconstructions Date and time of exam: July 05, 2025, 0021 hours INDICATION: Patient fell 1 week ago with into the head, head pain CTDI: vol (mGy): 54.60 DLP: (mGycm): 1114 Technique: Multiple CT axial sections of the brain have been obtained, 5 mm slice thickness. Contrast has not been administered. 2-D sagittal, coronal reconstructions have been obtained Low dose protocols were performed. One or more of the following dose reduction techniques were used; automated exposure control, adjustment of the mA and/or KV according to patient size, use of iterative reconstruction technique. Findings: No significant ventricular enlargement. Intra-axial or extra-axial hemorrhage density is not seen. No mass effect or midline shift Basal cisterns are not remarkable. Fourth ventricle is midline. Cranial vault intact. Impression: Negative for acute hemorrhage, mass effect or midline shift
--- NOTE | 2025-07-05 00:48 | PC.NURSE ---
3516 LEFT MESSAGE WITH popAD [facility]. 1133 [facility] SPEAKING WITH DR AUSTIN.
--- NOTE | 2025-07-05 00:49 | PC.NURSE ---
0000 DR [facility]IGHER LEVEL OF CARE. 0015 [facility] RETURNED CALL AND SPEAKING WITH DR AUSTIN.
--- NOTE | 2025-07-05 01:07 | PRELIM_ITS ---
CT scan of the head without intravenous contrast (axial sections with sagittal and coronal reformats) July 05, 2025 0021 hours Clinical History: Trauma Comparison: No prior study is available for comparison. Findings: There is no evidence of acute intracranial hemorrhage, mass effect or midline shift. There are chronic infarcts/gliotic changes at the frontoparietal junction near the vertex. There are periventricular white matter hypodensities, compatible with chronic small vessel ischemia. There is mild volume loss. The calvarium is intact. The mastoid air cells and the visualized paranasal sinuses are clear. Impression: No evidence of acute intracranial hemorrhage, midline shift or calvarial fracture. Periventricular chronic small vessel ischemia and volume loss. Suggest clinical correlation and follow up accordingly. Report Electronically Signed By: Timmy Mejia 07/05/2025 1:06:44 AM [EST]
[2025-07-05 02:00] VITALS: BP 120/56; PULSE 78; RESP 19; TEMP 37; O2SAT 93
== END 2025-07-05 04:54 | disposition short-term general hospital (02) ==
PROVIDERS: Nurse Practitioner Primary Care; Emergency Provider Emergency Medicine; PCP Family Medicine
DX: G83.4 Cauda equina syndrome (principal); S32.039A Unspecified fracture of third lumbar vertebra, initial encounter for closed fracture; I82.512 Chronic embolism and thrombosis of left femoral vein; M25.852 Other specified joint disorders, left hip; M25.851 Other specified joint disorders, right hip; I10 Essential (primary) hypertension; E78.00 Pure hypercholesterolemia, unspecified; R51.9 Headache, unspecified; I44.0 Atrioventricular block, first degree; W19.XXXA Unspecified fall, initial encounter; Z75.1 Person awaiting admission to adequate facility elsewhere
CPT/HCPCS: 36415; 70450; 72131; 72192; 80053; 81001; 83735; 83880; 84484; 85025; 85610; 85730; 93005; 93970; 94640; 96374; 99285; J0612; J1100; J7050; A9270; J7611

== ENCOUNTER 2025-07-13 12:24 | Emergency (ER) | payer OTHER, SELFPAY ==
[2025-07-13 12:25] VITALS: BMI 36.9
[2025-07-13 12:39] VITALS: BP 142/68; PULSE 85; RESP 17; TEMP 36.6; O2SAT 95
--- NOTE | 2025-07-13 13:32 | XR_ITS ---
EXAMINATION: Testicular sonography complete TECHNIQUE: Grayscale sonographic images testes, assessment arterial inflow and venous outflow Doppler spectral analysis color flow analysis Date and time: July 13, 2025, 1404 hours INDICATIONS: Right testicular pain and swelling beginning 3 days ago. FINDINGS: Right testis 3.2 cm epididymis 16 mm 11 mm right epididymal cyst Arterial flow the testicle. No testicular mass Left testis 3.8 cm epididymis 12 mm Arterial flow the testicle. No testicular mass IMPRESSION: Benign right epididymal cyst No testicular torsion or testicular mass Left epididymitis
--- NOTE | 2025-07-13 13:33 | PD.EDRME ---
Rapid Medical Screening Exam RME Arrival date/time: 07/13/25 12:24 Patient is a 69-year-old male with medical history notable for diabetes, hypertension, osteopenia, seizure disorder, factor V Leiden deficiency, seizure disorder, prior stroke with residual resting tremor, that was recently seen in the Emergency Department with concerns for weakness of bilateral lower extremities after a fall 2 week ago. There was a concern for possible cauda equina syndrome. Patient was transferred to [facility] in [place] for further workup. Patient was seen by neurosurgeon and had many tests done at that time according to patient. Patient states he left AGAINST MEDICAL ADVICE on July 07, 2025 patient reports feeling frustrated because he was in. A hallway bed for 2 days and was frustrated and wanted to go home. Patient states that while he was going to have an MRI of his spine his right testicle started to hurt. Patient did inform them at [facility] about the testicle pain and an ultrasound of his testicle was ordered but patient did not wait for it to be done. Patient signed AGAINST MEDICAL ADVICE. Patient states it was still hurting when he left but he thought maybe he just hurt it because he was on a flat board. Patient reports today it is hurting more and he wanted to have it checked out. Patient denies any urinary symptoms. Patient ambulatory. Patient denies fever chills I have greeted and performed a focused initial assessment of this patient. Initial appropriate labs ordered at this time. A comprehensive ED assessment and evaluation of the patient and analysis of all test and completion of medical decision making process will be conducted by additional ED provider. Chief Complaint: Urogenital-Male Time Seen by Provider: 07/13/25 12:32 Vital signs: Vital Signs Temperature 97.9 F 07/13/25 12:39 Pulse Rate 85 07/13/25 12:39 Respiratory Rate 17 07/13/25 12:39 Blood Pressure 142/68 H 07/13/25 12:39 Pulse Oximetry (%) 95 07/13/25 12:39 Oxygen Delivery Method Room Air 07/13/25 12:39 Exam: Alert and oriented, breathing even and unlabored, skin warm and dry Clinical Impression: Testicle pain
[2025-07-13 14:03] LABS: Basophils # (Auto) 0.1 Thou/mm3 (0.0-0.2); Basophils % (Auto) 1 % (0-2.5); Eosinophils # (Auto) 0.8 Thou/mm3 (0.0-0.5); Eosinophils % (Auto) 7 % (0-10); Hematocrit 35.5 % (41.0-53.0); Hemoglobin 11.6 g/dL (13.5-16.0); Immature Granulocytes Auto 0.11 Thou/mm3 (0.00-0.00); Lymphocytes # (Auto) 3.3 Thou/mm3 (1.0-4.8); Lymphocytes % (Auto) 28 % (10-50); Mean Corpuscular HGB Conc 32.7 g/dl (31.0-37.0); Mean Corpuscular Hemoglobin 31.3 pg (25.0-35.0); Mean Corpuscular Volume 96 fL (80-100); Monocytes # (Auto) 0.9 Thou/mm3 (0.0-0.8); Monocytes % (Auto) 7 % (0-12); Neutrophils # (Auto) 6.6 Thou/mm3 (1.8-7.7); Neutrophils % (Auto) 56 % (37-80); Nucleated Red Blood Cell # 0.02 Thou/mm3 (0.00-0.00); Nucleated Red Blood Cell % 0 /100 WBC (0); Platelet Count 173 Thou/mm3 (140-440); RDW Standard Deviation 51.3 fL (35.1-43.9); Red Blood Count 3.71 Miln/mm3 (4.50-5.90); White Blood Count 11.7 Thou/mm3 (3.8-10.6)
[2025-07-13 14:36] LABS: Alanine Aminotransferase 21 U/L (10-49); Albumin, Serum 4.4 gm/dL (3.4-4.8); Albumin/Globulin Ratio 2.1 (1.2-2.2); Alkaline Phosphatase 102 U/L (46-116); Anion Gap 11 (7-16); Aspartate Amino Transferase 20 U/L (0-34); BUN/Creatinine Ratio 14 Ratio (12-20); Bilirubin,Total 0.2 mg/dL (0.3-1.2); Blood Urea Nitrogen 21 mg/dL (9-23); Calcium 9.1 mg/dL (8.3-10.6); Calcium (Corrected) 9.1 mg/dL (8.5-10.1); Carbon Dioxide 28.3 mMol/L (20.0-31.0); Chloride 105 mMol/L (98-107); Creatinine (Component) 1.5 mg/dL (0.6-1.3); Estimated Creatinine Clearance 56.1 mL/min (>60); Globulin 2.1 gm/dL (2.3-3.5); Glucose 123 mg/dL (74-106); Osmolality,Calculated 290 (275-295); Potassium 5.1 mMol/L (3.4-5.1); Sodium 144 mMol/L (136-145); Total Protein 6.5 gm/dL (5.7-8.2); eGFR 49 See Note
[2025-07-13 14:43] LABS: Collection Type, Urine Voided; Squamous Epithelial Cell,Urine 0 /hpf (0-5)
[2025-07-13 15:06] LABS: Bacteria,Urine Rare; Bilirubin,Urine Negative (Negative); Blood,Urine Negative (Negative); Clarity,Urine Clear (Clear/Hazy); Color,Urine Lt-Yellow (Lt Yel-Yel); Culture Indicated,Urine Not Indicated; Glucose, Urine Negative (Negative); Ketones,Urine Negative (Negative); Leukocyte Esterase,Urine Negative (Negative); Nitrite,Urine Negative (Negative); PH,Urine 6.5 (5.0-7.0); Protein,Urine Negative (Neg - Trace); RBC,Urine 2 /hpf (0-3); Specific Gravity,Urine 1.021 (1.001-1.035); Urobilinogen,Urine Negative mg/dL (0.0-1.0); WBC,Urine 2 /hpf (0-5)
--- NOTE | 2025-07-13 15:53 | PD.EDMALE ---
ED Male Genitalurinary RME/HPI General Chief complaint: Urogenital-Male Stated complaint: R TESTICLE PAIN X1 HR Time Seen by Provider: 07/13/25 12:32 Arrival date/time: 07/13/25 12:24 Patient is a 69-year-old male with medical history notable for diabetes, hypertension, osteopenia, seizure disorder, factor V Leiden deficiency, seizure disorder, prior stroke with residual resting tremor, that was recently seen in the Emergency Department with concerns for weakness of bilateral lower extremities after a fall 2 week ago. Patient has no complaints of this at this time. There was a concern for possible cauda equina syndrome. Patient was transferred to [facility] for further workup. Patient was seen by neurosurgeon and had many tests done at that time according to patient. Patient states he left AGAINST MEDICAL ADVICE on July 07, 2025 patient reports feeling frustrated because he was in. A hallway bed for 2 days and was frustrated and wanted to go home. Patient states that while he was going to have an MRI of his spine his right testicle started to hurt. Patient did inform them at [facility] about the testicle pain and an ultrasound of his testicle was ordered but patient did not wait for it to be done. Patient signed AGAINST MEDICAL ADVICE. Patient states it was still hurting when he left but he thought maybe he just hurt it because he was on a flat board. Patient reports today it is hurting more and he wanted to have it checked out. Patient denies any urinary symptoms. Patient ambulatory. Patient denies fever chills RME / HPI RME / HPI Narrative: 07/13/25 12:24 Patient is a 69-year-old male with medical history notable for diabetes, hypertension, osteopenia, seizure disorder, factor V Leiden deficiency, seizure disorder, prior stroke with residual resting tremor, that was recently seen in the Emergency Department with concerns for weakness of bilateral lower extremities after a fall 2 week ago. There was a concern for possible cauda equina syndrome. Patient was transferred to [facility] in [place] for further workup. Patient was seen by neurosurgeon and had many tests done at that time according to patient. Patient states he left AGAINST MEDICAL ADVICE on July 07, 2025 patient reports feeling frustrated because he was in. A hallway bed for 2 days and was frustrated and wanted to go home. Patient states that while he was going to have an MRI of his spine his right testicle started to hurt. Patient did inform them at [facility] about the testicle pain and an ultrasound of his testicle was ordered but patient did not wait for it to be done. Patient signed AGAINST MEDICAL ADVICE. Patient states it was still hurting when he left but he thought maybe he just hurt it because he was on a flat board. Patient reports today it is hurting more and he wanted to have it checked out. Patient denies any urinary symptoms. Patient ambulatory. Patient denies fever chills I have greeted and performed a focused initial assessment of this patient. Initial appropriate labs ordered at this time. A comprehensive ED assessment and evaluation of the patient and analysis of all test and completion of medical decision making process will be conducted by additional ED provider. Exam: Alert and oriented, breathing even and unlabored, skin warm and dry Impression: Testicle pain Related Data Home Medications ?Medication ?Instructions ?Recorded ?Confirmed gabapentin 300 mg capsule 300 mg PO BID #0 caps 12/10/15 07/22/25 lisinopril 40 mg tablet 10 mg PO QDAY #0 tabs 12/10/15 07/22/25 metformin 1,000 mg tablet 1,000 mg PO BIDAC #0 tabs 12/10/15 07/22/25 (Glucophage) pioglitazone 30 mg tablet (Actos) 30 mg PO QDAY #0 tabs 12/10/15 07/22/25 lacosamide 100 mg tablet (Vimpat) 200 mg PO BID #0 tabs 12/08/16 07/22/25 atorvastatin 40 mg tablet 40 mg PO HS 08/15/18 07/22/25 lorazepam 1 mg tablet 1 mg PO Q4H PRN Seizure Activity 08/15/18 07/22/25 apixaban 5 mg tablet (Eliquis) 5 mg PO BID 01/17/25 07/22/25 Previous Rx's ?Medication ?Instructions ?Recorded levetiracetam 1,000 mg tablet 1,000 mg PO BID #60 tabs 04/05/19 comp.stocking,thigh,long,large #2 ea 09/01/23 diphenhydramine HCl 25 mg tablet 50 mg (2 x 25 mg) PO TID PRN 07/13/25 allergic reaction #30 tabs doxycycline hyclate 100 mg tablet 100 mg PO BID #14 tabs 07/13/25 Allergies Allergy/AdvReac Type Severity Reaction Status Date / Time Iodinated Contrast Media Allergy Mild Rash Verified 07/22/25 10:37 Review of Systems Review of Systems Systems Reviewed: All systems reviewed, normal except as documented Past Medical History Past Medical History NEUROLOGIC: Positive Neurological Disorders, Cerebrovascular Accident and Seizures CARDIAC: Positive Cardiac Disorders, Hypercholesterolemia and Hypertension ENDOCRINE: Positive Endocrine Disorders and Diabetes Mellitus Type 2 HEMATOLOGIC: Positive Blood Disorders (factor 5) and Clotting Problems OTHER HISTORY: Positive Falls, Chicken Pox, Measles and Mumps Family History FAMILY HISTORY: Positive Family Cardiac Disorders (Sister heart disease, brother heart disease) ED Exam Narrative Physical exam: VITAL SIGNS: Reviewed. GENERAL APPEARANCE: Alert and interactive, follows commands, no acute distress HEAD AND FACE: Non-traumatic. ENT: PERRL, conjuctiva pink and clear, eyelid no trauma, Mucous membrane moist. NECK: Supple, nontender, no nuchal rigidity. CHEST: No tenderness, no crepitus, no paradoxical movement, no retractions. LUNGS: breathing even and unlabored HEART: Regular rate, cap refill less than 2 seconds ABDOMEN: Soft, no pain to palpation : No scrotal pain no erythema NEUROLOGICAL: Gross motor function intact sensory function intact, Appropriate for age. MUSCULOSKELETAL: low back nontender, full range of motion. no midline tenderness, no meningismus, no step offs EXTREMITIES: No redness no swelling no skin breakdown on bilateral foot and leg. Distal neurovascular status intact bilateral foot SKIN: Color pink, dry Course Quality Measures none Orders Category Date Time Status US scrotum Stat Exams 07/13/25 13:32 Completed CBC Stat Lab 07/13/25 13:50 Completed Comprehensive Metabolic Panel Stat Lab 07/13/25 13:50 Completed Urinalysis, C/S if Indicated Stat Lab 07/13/25 14:11 Completed DiphenhydrAMINE [Benadryl] Med 07/13/25 16:19 Discontinued 50 mg PO X1 ONE Doxycycline [Vibramycin] Med 07/13/25 16:19 Discontinued 100 mg PO X1 ONE Famotidine [Pepcid] Med 07/13/25 16:19 Discontinued 20 mg PO X1 ONE cefTRIAXone [Rocephin] 1,000 mg Med 07/13/25 16:20 Discontinued Lidocaine 1% Pf Vial 5ml [Xylocaine 1% Pf 5 ml] 2.1 ml IM X1 Vital Signs Vital signs: Vital Signs Temperature 97.9 F 07/13/25 12:39 Pulse Rate 85 07/13/25 12:39 Respiratory Rate 17 07/13/25 12:39 Blood Pressure 142/68 H 07/13/25 12:39 Pulse Oximetry (%) 95 07/13/25 12:39 Oxygen Delivery Method Room Air 07/13/25 12:39 Urogenital - Male MDM Narrative MDM Narrative:: FINDINGS: Right testis 3.2 cm epididymis 16 mm 11 mm right epididymal cyst Arterial flow the testicle. No testicular mass Left testis 3.8 cm epididymis 12 mm Arterial flow the testicle. No testicular mass IMPRESSION: Benign right epididymal cyst No testicular torsion or testicular mass Left epididymitis Patient has a rash to arms and legs from recent contrast from being in the hospital. Patient states that he when he was given contrast in the hospital he got a rash right afterwards and they were treating it briefly while he was in the hospital but he still has a rash. Patient states it is itchy. Today treated with Pepcid and Benadryl. Will send patient home with this as well. I spoke to patient at length. Pt denies anal sex, multple sex partners and unprotected sex. Patient denies urinary sysmptoms. Will give patient a dose of Rocephin and doxycycline. Patient will be sent home on doxycycline. Will send a urine culture. Patient told to follow-up with primary provider in 1 to 2 days. [place] to the emergency room symptoms change or worsen. Dragon dictation: Although this document has been carefully reviewed, there may still be some phonetic and other typographical errors. These errors are purely grammatical due to imperfections in the software program and should not be construed in any way to compromise the substance of the patient's medical care during this visit. Patient data External records reviewed:: [facility] previous records Clinical information provided by:: patient Social determinants that could affect healthcare access:: none Patient has the following chronic illnesses:: See note How is presenting disease/condition affected by chronic disease/condition?: no chronic disease Evaluation data The following diagnostics were reviewed and interpreted by me:: lab results and radiology exam(s) Lab and/or radiology exams considered but not ordered:: See note Interpretation Summary: See note Medications / Prescriptions Medications or Prescriptions considered but not ordered:: None Medication administrations:: Medication Administration History Discontinued Medications Ceftriaxone Sodium 1,000 mg/ (Lidocaine HCl 2.1 ml) 0 mg IM X1 ONE Stop: 07/13/25 16:21 Last Admin: 07/13/25 17:30 Dose: 1,000 mg Documented By: Diphenhydramine HCl (Diphenhydramine 25 Mg Capsule) 50 mg PO X1 ONE Stop: 07/13/25 16:20 Last Admin: 07/13/25 17:32 Dose: Not Given Documented By: Non-Admin Reason: Patient Refused Doxycycline Hyclate (Doxycycline 100 Mg Tablet) 100 mg PO X1 ONE Stop: 07/13/25 16:20 Last Admin: 07/13/25 17:29 Dose: 100 mg Documented By: Famotidine (Famotidine 20 Mg Tablet) 20 mg PO X1 ONE Stop: 07/13/25 16:20 Last Admin: 07/13/25 17:29 Dose: 20 mg Documented By: See MAR Consultations Consultation(s) initiated? (list below): No Diagnosis Urogenital Male Differential Diagnosis: urinary tract infection, urethritis, epididymitis and prostatitis Most likely diagnosis given after review of the tests above:: See note Admission Indicated Admission indicated?: not indicated Admission Request Was there a request for admission?: No Disposition Plan Disposition Plan: Discharge Discharge Attestation Discharge Attestation: The patient and all family members were given an opportunity to ask questions and understood the discharge instructions. Discharge instructions specifically effects, indications for sooner follow up or return to the emergency department, and the expected course of current diagnosis. Patient condition: Stable Discharge Plan Plan Patient Disposition: HOME (Self Care) Patient condition on transfer: Stable Prescriptions/Referrals Prescriptions/Med Rec: New doxycycline hyclate 100 mg tablet 100 mg PO BID Qty: 14 0RF diphenhydramine HCl 25 mg tablet 50 mg PO TID PRN (Reason: allergic reaction) Qty: 30 0RF No Action Eliquis 5 mg tablet 5 mg PO BID gabapentin 300 MG capsule 300 mg PO BID Qty: 0 lisinopril 40 MG tablet 10 mg PO QDAY Qty: 0 metformin [Glucophage] 1,000 MG tablet 1,000 mg PO BIDAC Qty: 0 pioglitazone [Actos] 30 MG tablet 30 mg PO QDAY Qty: 0 Patient Comments: FOR DIABETES lacosamide [Vimpat] 100 MG tablet 200 mg PO BID Qty: 0 levetiracetam 1,000 mg tablet 1,000 mg PO BID Qty: 60 1RF atorvastatin 40 mg Tablet 40 mg PO HS lorazepam 1 mg Tablet 1 mg PO Q4H PRN (Reason: Seizure Activity) (DME) comp.stocking,thigh,long,large Misc See Rx Instructions .Route Qty: 2 0RF Rx Instructions: As directed Referrals: Hawk Skelton MD [Primary Care Provider, Family Practice] - In 1 week Problem List Clinical Impression: Rash, Epididymitis Patient/Caregiver Discharge Instructions Discharge Activity: activity as tolerated Education Materials: ED Epididymitis Additional Instructions: Follow up with primary provider in 1-2 days. Come back to ED if symptoms change or worsen Print Language: Kyrgyz Stand Alone Forms: Lois Award Info., Patient Portal Info Letter PA/RESEARCH SUBJECT Supervising Physician PA/RESEARCH SUBJECT Supervising Physician: milton
[2025-07-13] MEDS: DOXYCYCLINE 100 MG TABLET PO (17:29)
[2025-07-13] MEDS: FAMOTIDINE 20 MG TABLET PO (17:29)
== END 2025-07-13 17:54 | disposition home or self-care (01) ==
PROVIDERS: Nurse Practitioner Family; Emergency Provider Emergency Medicine; PCP Family Medicine
DX: N45.1 Epididymitis (principal); R21 Rash and other nonspecific skin eruption; N50.3 Cyst of epididymis
CPT/HCPCS: 36415; 76870; 80053; 81001; 85025; 87081; 87086; 96372; 99283; J0696; J3490; A9270